=== PATIENT | female | born 1995 | race Caucasian/White ===

== ENCOUNTER 2017-04-06 11:52 | Observation (INO) | payer MEDICAID ==
[~2017-04-06] VITALS: Ht 172.7 cm; Wt 99.8 kg
[~2017-04-06 11:52] MED LIST: ACETAMINOPHEN-1 EAC1 PO; CITRATE OF MAG296 ML PO; COLACE100 MG PO; FLAGYL500 MG PO; HYDROCODONE-AP1 EAC6 PO
[2017-04-06 12:20] VITALS: BP 147/93
--- NOTE | 2017-04-06 12:21 | NUR ---
PT STATES SHE CANNOT URINATE AT THIS TIME
[2017-04-06 12:40] LABS: URINE BLOOD NEGATIVE (Negative); URINE CLARITY CLEAR; URINE COLOR YELLOW; URINE GLUCOSE-RANDOM NEGATIVE (Negative); URINE LEUKOCYTES-REFLEX NEGATIVE (Negative); URINE NITRITE-REFLEX NEGATIVE (Negative); URINE PROTEIN TRACE (Negative); URINE SPECIFIC GRAVITY >= 1.030 (1.005-1.030); URINE UROBILINOGEN 0.2 E.U./dl (0.2-1.0)
[2017-04-06 12:41] LABS: ICTOTEST (BILI CONFIRMATORY) Negative (Negative); URINE BILIRUBIN 1+ (Negative); URINE KETONES 3+ (Negative)
[2017-04-06 12:44] LABS: URINE REDUCING SUBSTANCE NEGATIVE (Negative)
[2017-04-06 12:50] LABS: HEMATOCRIT 42.9 % (37.0-47.0); HEMOGLOBIN 14.6 gm/dL (12.0-15.0); MCH 27.6 pg (26.0-34.0); MCHC 34.1 g/dL (28.0-37.0); MPV 8.8 fl. (7.2-11.1); NUCLEATED RBCS 0 /100WBC; PLATELET COUNT* 268 thou/uL (150-400); RBC 5.29 mil/uL (4.20-5.00); RDW-CV 16.2 % (10.5-14.5); WBC 11.1 thou/uL (4.0-11.0)
[2017-04-06 13:10] LABS: CALCIUM 9.1 mg/dL (8.5-10.1); CREATININE 0.8 mg/dL (0.6-1.3); POTASSIUM 3.8 mmol/L (3.5-5.1)
[2017-04-06 13:13] LABS: ABSOLUTE LYMPHOCYTES 1.2 thou/uL (0.8-5.3); ABSOLUTE MONOCYTES 0.2 thou/uL (0.0-1.2); ABSOLUTE NEUTROPHILS 9.7 thou/uL (1.6-8.1); PLATELET ESTIMATE ADEQUATE
[2017-04-06 13:14] LABS: ANISOCYTOSIS 1+; POIKILOCYTOSIS 1+
[2017-04-06 13:15] LABS: TOTAL BILIRUBIN 0.9 mg/dL (<0.1-1.0); TOTAL PROTEIN 7.6 g/dL (6.4-8.2)
[2017-04-06 15:07] VITALS: BP 120/74
[2017-04-06 20:00] VITALS: BP 163/59
[2017-04-06 21:31] VITALS: BP 120/74
[2017-04-06] MEDS ORDERED: TRAMADOL 50 MG50 MG PO (21:52)
[2017-04-06 22:04] VITALS: BP 120/74
--- NOTE | 2017-04-06 22:32 | NUR ---
ADMISSION HISTORY AND ASSESSMENT COMPLETED CHARTED, VSS. BLOOD PRESSURE SLIGHTLY ELEVATED, 163/59, HOWEVER PATIENT VOICES FRUSTRATION AND ANXIETY BECAUSE THE RESIDENT HAD TOLD HER "SHE COULD GO HOME AFTER THE SURGERY." PATIENT REQUESTING THAT THIS RN CALL THE RESIDENT AND ASK IF SHE CAN BE DISCHARGED TONIGHT. SPOKE TO DR. BEBE REYES LETTING HIM KNOW THE PATIENT IS WANTING TO LEAVE BECAUSE SHE DOES NOT HAVE A SHEETMETAL PATTERNMAKER FOR HER [address] BEBE REYES ADAMIT ABOUT PATIENT STAYING DUE TO EXTENT OF INFECTION IN GALLBLADDER FOUND DURING SURGERY. THIS RN RETURNED TO PATIENT'S ROOM TO EXPLAIN THIS TO PATIENT. PATIENT STATES "I CAN FOLLOW UP WITH THE DOCTOR TOMORROW IF THAT'S WHAT IT TAKES." PATIENT STRONGLY ENCOURAGED TO STAY FOR OBSERVATION. PILL PACKER IN TO TALK TO PATIENT. PATIENT TEARFUL BECAUSE "SHE HAS BEEN ON HERE OWN SINCE SHE WAS 15 YEARS OLD AND HAS A BABY AT HOME THAT SHE NEEDS TO GET HOME TO." PILL PACKER VOICED SYMPATHY AND OFFERED TO CONSULT CASE MANAGEMENT TO HELP PATIENT FIND ASSISTANCE. PATIENT REFUSED CONSULT BECAUSE THEY WOULDNT "SEE HER UNTIL THE MORNING." HER FRIEND IS AT THE BEDSIDE OFFERING TO CALL IN TO WORK TONIGHT TO STAY WITH THE BABY. PATIENT CONTINUES TO REFUSE TO STAY DESPITE ALL OPTIONS GIVEN. DR. BEBE REYES PAGED AGAIN AND DISCHARGE INSTRUCTIONS AND ORDERS RECIEVED, HOWEVER, PATIENT WAS STILL CONSIDERED LEAVING AMA ACCORDING TO DR. DISCHARGE INSTRUCTIONS AND ORDERS EXPLAINED TO PATIENT. PATIENT VERBALIZES UNDERSTANDING. DISCHARGE PACKET SIGNED, WELL EDUCATION SHEET ABOUT PRESCRIPTION TRAMADOL. PATIENT SENT WITH ALL BELONGINGS AND SCRIPT. IV DC'D. FRIEND LEFT THE UNIT WITH HIS FRIEND.
[2017-04-07] MEDS ORDERED: BIRTH CONTROL PO (14:21)
--- NOTE | 2017-04-08 16:10 | S ---
[address] [address] SURGICAL PATH RPT PROCEDURE Name: BERNARDO HARRELL Room: [address] Yordy Loera#: [id number] Admission: 04/06/17 Date of : 89 Discharge: 04/06/17 Report #: [id number] Path Case #: [id number] PATHOLOGY REPORT COLLECTION DATE: 04/06/2017 RECEIVED DATE: 04/07/2017 SUBMITTING PHYS: Dr. Lona Hilliard OTHER PHYS: Sondra May [facility] SPECIMEN(S) RECEIVED: A.Gallbladder and contents * * * * * * * * * * * * FINAL DIAGNOSIS: Gallbladder and contents: - Chronic and acute, erosive and hemorrhagic cholecystitis with mural fibrosis, cholelithiasis and benign sentinel lymph node with congestion. (SAVANA:[facility]; 04/08/2017) PATHOLOGIST: Timbo York M.D. REPORT ELECTRONICALLY SIGNED BY: Timbo York M.D. DATE/TIME: 04/08/2017 16:10 * * * * * * * * * * * * GROSS PATHOLOGY: Received in formalin labeled "Bernardo Harrell gallbladder and contents" and consists of a previously opened gallbladder measuring (upon reconstruction) 5.0 x 2.5 x 1.7 cm. The serosa is ragged, marija, and markedly hemorrhagic. The neck region is inked black. The wall is markedly fibrotic and measures 0.5 cm thick. The mucosa is shaggy and red-brown. Also within the container is a green calculus measuring 0.7 cm in diameter. 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 (AVERY; 04/07/2017) CLINICAL HISTORY: Cholecystitis INITIAL CPT CODE(S): A; 58213 [facility], [address] [place] [id number]. Technical services performed by [facility] at [address] [place] [address], [facility] [address] [place] [address]. [place] [address] SURGICAL PATH RPT PROCEDURE Name: BERNARDO HARRELL Room: [address] Yordy Loera#: [id number] Admission: 04/06/17 Date of : [birth year] Discharge: 04/06/17 Report #: [id number] Path Case #: [id number] [address] PHONE: [phone] DIRECTOR: Bubba Newton M.D. * * * END OF REPORT * * *
--- NOTE | 2017-04-19 19:30 | OP ---
[address] [address] OPERATIVE REPORT Name: BERNARDO DONALD Room: [address] Yordy Loera#: [id number] Admission: 04/06/17 Attend Phys: Lona Hilliard MD Discharge: 04/06/17 Date of : 89 Report #: [id number] THIS REPORT FOR: //name// CC: Lona May DATE OF SERVICE: 04/06/2017 PREOPERATIVE DIAGNOSIS: Acute cholecystitis. POSTOPERATIVE DIAGNOSIS: Gangrenous cholecystitis. PROCEDURE: Laparoscopic cholecystectomy. SURGEON: Lona Hilliard MD ASSISTANTS: 1. Alexis Mendoza DO 2. Waldo Ngo DO ESTIMATED BLOOD LOSS: 50. COMPLICATIONS: None. FINDINGS: 1. Critical view of safety obtained. 2. Jose A purulent expressed from the gallbladder. DESCRIPTION OF PROCEDURE: Fully informed consent was obtained preoperatively with full discussion of risks, benefits and alternatives. The patient understood risk of bleeding, infection, reoperation, conversion to open, injury to surrounding structures including bowel, duodenum, common bile duct among others, hernia, conversion to open, bile leak, recurrence of symptoms, need for drain either cholecystostomy or temporary drain in the gallbladder bed and catastrophic complications up to including cardiopulmonary failure and . The patient understood and wished to proceed. She was taken to the operating room, prepped and draped in standard sterile fashion and began with timeout, all in agreement, began with 5 mm incision left upper quadrant and used Optiview technique to enter safely into the abdomen. I surveyed the abdomen and of note, there was an inflamed omentum pulled over the gallbladder and liver. Additional ports were placed including 2 elevens in the supraumbilical area and subxiphoid area and 2 fives in the right upper quadrant. Omentum was dissected free primarily with cautery, bowel was well away from this, gallbladder was elevated, retracted cranially and laterally. It was grasped at the neck and retracted, began dissection of the triangle of Calot. I scored the peritoneum medially and [facility] [address] [place] [address] OPERATIVE REPORT Name: BERNARDO DONALD Room: [address]#: [id number] Admission: 04/06/17 Attend Phys: Lona Hilliard MD Discharge: 04/06/17 Date of : 89 Report #: [id number] laterally along the triangle of Calot, circumferentially dissected removing all fibrofatty tissue from between the cystic duct and cystic artery. Next, we did extensive mobilization posteriorly including the back wall in the gallbladder clearing the cystic plate completely in order to confirm my critical view. Next, I took a blue load 45 stapler and fired across the cystic duct gallbladder junction. The cystic artery was clipped and Bovie was transected distally, I used Bovie to transect the rest of the gallbladder from the liver bed. I made sure it was hemostatic at this time. Next, I placed a piece of Surgicel in the gallbladder bed after first irrigating and suctioning copiously. A 19 round TANIKA placed in the gallbladder bed as well as a piece of Surgicel, which was anchored in place with 2-0 nylon. Next, 0 Vicryl was used to close the subxyphoid and umbilical fascia using Dario-Travis technique, I desufflated and again reviewed the gallbladder bed as well as the port sites, while they were removed, I saw no bleeding. A 4-0 Monocryl was used to close the skin and sterile Dermabond was applied. Sponge, needle, instrument counts were correct at the end of the case. <ELECTRONICALLY SIGNED> By: Lona Hilliard MD 04/19/171929 180 1927Daalfredo Hilliard MD /nt
== END 2017-04-06 22:45 | disposition left against medical advice (07) ==
LOC: M.SUR 11:52 → M.ERS 11:52 → M.TBA 17:31 → M.ORTHSURG 19:12
PROVIDERS: Nurse Practitioner Family; ADMIT Surgery
PROC: 0FT44ZZ Resection of Gallbladder, Percutaneous Endoscopic Approach (ICD-10-PCS; principal; 2017-04-06)
DX: K80.00 Calculus of gallbladder with acute cholecystitis without obstruction (principal)

== ENCOUNTER 2017-04-07 14:11 | Inpatient (IN) | payer MEDICAID ==
[~2017-04-07] VITALS: Ht 172.7 cm; Wt 99.8 kg
[~2017-04-07 14:11] MED LIST changes: +TRAMADOL 50 MG50 MG PO
[2017-04-07 14:19] VITALS: BP 150/97
[2017-04-07] MEDS ORDERED: BIRTH CONTROL PO (14:21)
[2017-04-07 14:45] LABS: ABSOLUTE LYMPHOCYTES 2.7 thou/uL (0.8-5.3); ABSOLUTE MONOCYTES 1.5 thou/uL (0.0-1.2); ABSOLUTE NEUTROPHILS 11.9 thou/uL (1.6-8.1); BASOPHILS 0.1 %; HEMATOCRIT 43.4 % (37.0-47.0); HEMOGLOBIN 14.6 gm/dL (12.0-15.0); MCH 27.5 pg (26.0-34.0); MCHC 33.7 g/dL (28.0-37.0); MCV 81.8 fL (80.0-100.0); MONOCYTES 9.1 %; NUCLEATED RBCS 0 /100WBC; PLATELET COUNT* 276 thou/uL (150-400); POLYS 73.8 %; RBC 5.31 mil/uL (4.20-5.00); RDW-CV 16.7 % (10.5-14.5); WBC 16.1 thou/uL (4.0-11.0)
[2017-04-07 14:52] LABS: CALCIUM 9.4 mg/dL (8.5-10.1); CREATININE 0.9 mg/dL (0.6-1.3); POTASSIUM 3.5 mmol/L (3.5-5.1)
[2017-04-07 14:56] LABS: ALBUMIN 4.1 g/dL (3.4-5.0); TOTAL BILIRUBIN 0.9 mg/dL (<0.1-1.0); TOTAL PROTEIN 7.9 g/dL (6.4-8.2)
[2017-04-07 15:36] LABS: URINE BLOOD NEGATIVE (Negative); URINE CLARITY CLEAR; URINE COLOR YELLOW; URINE GLUCOSE-RANDOM NEGATIVE (Negative); URINE KETONES 2+ (Negative); URINE LEUKOCYTES-REFLEX NEGATIVE (Negative); URINE NITRITE-REFLEX NEGATIVE (Negative); URINE PROTEIN NEGATIVE (Negative); URINE SPECIFIC GRAVITY 1.015 (1.005-1.030); URINE UROBILINOGEN 0.2 E.U./dl (0.2-1.0)
[2017-04-07 15:37] LABS: URINE BILIRUBIN 1+ (Negative)
[2017-04-07 15:39] LABS: ICTOTEST (BILI CONFIRMATORY) Negative (Negative)
[2017-04-07 17:01] VITALS: BP 142/76
[2017-04-07 17:23] VITALS: BP 151/66
--- NOTE | 2017-04-07 17:48 | NUR ---
ASSUMED CARE OF PATIENT AFTER TRANSFER FROM THE ED AT 1725. ORIENTED PATIENT TO ROOM. PATIENT HAS NO COMPLAINTS OF NAUSEA AT THIS TIME. PAIN IS BEING MANAGED WITH MEDICATION. PATIENT IS CURRENTLY DRINKING CONTRAST DRINK FOR UPCOMING SCANS. CALL LIGHT IS WITHIN REACH. NURSING WILL CONTINUE TO MONITOR.
[2017-04-07 20:00] VITALS: BP 158/97
[2017-04-08 00:11] VITALS: BP 121/70
--- NOTE | 2017-04-08 03:52 | NUR ---
ASSUMED CARE OF PT AT 1930, NURSING ASSESSMENT COMPLETED AT START OF SHIFT, PT VOICED PAIN AT START OF SHIFT, DR. LOPEZ PAGED AND NEW ORDERS RECEIVED FOR MORPHINE 2 MG IVPUSH Q2H PRN. SPOKE TO DR. NAVARRO IN REGARDS TO PATIENT'S ABDOMINAL CT SCAN RESULTS AT 2031. DR. LOPEZ NOTIFIED AND GIVEN DR. NAVARRO'S PHONE NUMBER PER DR. NAVARRO REQUEST AT 2044. PT RESING IN ROOM WITH [id number] AT BEDSIDE. VITAL SIGNS STABLE THIS SHIFT, CALL LIGHT WITHIN REACH.
--- NOTE | 2017-04-08 06:16 | NUR ---
PT HAD TOTAL OF 60 ML OF LIGHT RED SEROSANGUINEOUS FLUID IN TANIKA DRAIN THIS SHIFT, IV ANTIBIOTICS INFUSING, PRN PAIN MEDICATIONS GIVEN-SEE EMAR FOR DOCUMENTATION.
[2017-04-08 08:13] LABS: RBC 4.91 mil/uL (4.20-5.00)
[2017-04-08 08:15] LABS: ABSOLUTE BASOPHILS 0.2 thou/uL (0.0-0.2); ABSOLUTE LYMPHOCYTES 2.1 thou/uL (0.8-5.3); ABSOLUTE MONOCYTES 0.8 thou/uL (0.0-1.2); ABSOLUTE NEUTROPHILS 7.2 thou/uL (1.6-8.1); BASOPHILS 1.7 %; EOSINOPHILS 0.5 %; HEMOGLOBIN 13.7 gm/dL (12.0-15.0); LYMPHOCYTES 20.3 %; MCH 27.9 pg (26.0-34.0); MCHC 34.2 g/dL (28.0-37.0); MCV 81.5 fL (80.0-100.0); MONOCYTES 7.9 %; MPV 8.8 fl. (7.2-11.1); NUCLEATED RBCS 0 /100WBC; PLATELET COUNT* 222 thou/uL (150-400); POLYS 69.6 %; RDW-CV 16.6 % (10.5-14.5); WBC 10.3 thou/uL (4.0-11.0)
[2017-04-08 08:28] LABS: ALBUMIN 3.4 g/dL (3.4-5.0); CALCIUM 8.8 mg/dL (8.5-10.1); CREATININE 0.9 mg/dL (0.6-1.3); POTASSIUM 3.6 mmol/L (3.5-5.1); TOTAL BILIRUBIN 1.8 mg/dL (<0.1-1.0); TOTAL PROTEIN 6.8 g/dL (6.4-8.2)
--- NOTE | 2017-04-08 14:09 | NUR ---
CM SPOKE TO THE PATIENT TO DISCUSS HOME SITUATION, DISCHARGE PLANNING, AND TO INFORM OF THE ROLE OF CM. PATIENT ALERT, ORIENTED, AND INDEPENDENT WITH ADL'S. PATIENT WORKS AND DRIVES. PATIENT PLANS TO RETURN HOME AT DISCHARGE AND DOES NOT ANTICIPATE ANT NEEDS. CM WILL REMAIN AVAILABLE TO ASSIST AND FOLLOW NEEDED.
[2017-04-08 15:54] VITALS: BP 126/77
[2017-04-08 20:00] VITALS: BP 160/93
--- NOTE | 2017-04-08 22:13 | NUR ---
PATIENT STATES THAT SHE IS HAVING A HARD TIME BREATHING AND HAS NUMBNESS EVERYWHERE. ALSO STATES THAT SHE IS HAVING TROUBLE TALKING. HOWEVER NURSE OBSERVED PATIENT TALKING JUST FINE WITHOUT ANY ISSUES WHEN NURSE FIRST ENTERED PATIENTS ROOM. PATIENT FRIENDS WERE AT BEDSIDE AND DECIDED TO LEAVE WHEN ALL OF THIS STARTED. VSS ON RA. PATIENT IS VERY ANXIOUS AND CRYING. PATIENT STATES THAT SHE DOES HAVE ANXIETY BUT HASN'T EVER TAKEN ANYTHING FOR IT. PATIENT REQUESTED THAT I NOTIFY DR. GARCIACERTIFIED MIDWIFE OBSERVED PATIENT AND ASSESSED PATIENT. NOTIFIED AND INFORMED OF WHAT PATIENT STATED THAT SHE WAS EXPERIENCING. STATED THAT HE BELIEVED THAT IT WAS MORE PERSONALITY AND ANXIETY RELATED. NO NEW ORDERS AT THIS TIME. PATIENT INSTRUCTED TO USE CALL LIGHT WHEN NEEDING ASSISTANCE. HOURLY ROUNDS MADE. WILL CONTINUE WITH PLAN OF CARE AND NURSING TO MONITOR.
[2017-04-09 04:29] LABS: HEMOGLOBIN 13.3 gm/dL (12.0-15.0); MCV 82.1 fL (80.0-100.0); MPV 9.2 fl. (7.2-11.1); RBC 4.75 mil/uL (4.20-5.00); RDW-CV 16.3 % (10.5-14.5)
[2017-04-09 05:12] LABS: ALBUMIN 3.3 g/dL (3.4-5.0); CALCIUM 8.9 mg/dL (8.5-10.1); CREATININE 0.8 mg/dL (0.6-1.3); DIRECT BILIRUBIN 0.2 mg/dL (<0.1-0.3); POTASSIUM 3.5 mmol/L (3.5-5.1); TOTAL BILIRUBIN 0.8 mg/dL (<0.1-1.0); TOTAL PROTEIN 6.3 g/dL (6.4-8.2)
--- NOTE | 2017-04-09 07:48 | NUR ---
PATIENT HAS SLEPT THROUGHOUT THE NIGHT WITHOUT ANYMORE C/O PAIN AND ANXIETY HAS SUBSIDED. VSS ON RA. LAP SITES X 4 C/D/I. PATIENT IS UP AD-JASON AND STEADY. IV IN RIGHT AC-SL. PATIENT INSTRUCTED TO USE CALL LIGHT WHEN NEEDING ASSISTANCE. HOURLY ROUNDS MADE. WILL CONTINUE WITH PLAN OF CARE AND NURSING TO MONITOR.
[2017-04-09 08:12] VITALS: BP 127/77
[2017-04-09 09:00] VITALS: BP 127/77
[2017-04-09 09:46] VITALS: BP 127/77
--- NOTE | 2017-04-09 09:46 | NUR ---
ASSUMED CARE OF PATIENT AFTER MORNING REPORT. ALERT AND ORIENTED X4. ASSESSMENT COMPLETED AND CHARTED. VSS ON ROOM AIR. PATIENT HAD NO COMPLAINTS OF NAUSEA. PAIN WAS MANAGED WITH PAIN MEDICATION. TANIKA DRAIN AND IV DISCONTINUED AND PATIENT DISCHARGED AT 0940. ALL PERSONAL ITEMS LEFT WITH PATIENT. DISCHARGE INSTRUCTIONS SENT WITH PATIENT UPON DISCHARGE.
== END 2017-04-09 09:40 | disposition home or self-care (01) | DRG 864 ==
LOC: M.ERS 14:11 → M.TBA-ER 16:24 → M.ORTHSURG 16:24
PROVIDERS: Nurse Practitioner Family; ADMIT Surgery
DX: R50.82 Postprocedural fever (principal); G89.18 Other acute postprocedural pain; D72.829 Elevated white blood cell count, unspecified; Z90.49 Acquired absence of other specified parts of digestive tract

== ENCOUNTER 2018-02-27 21:17 | Emergency (ER) | payer OTHER, MEDICAID ==
[~2018-02-27] VITALS: Ht 172.7 cm; Wt 108.9 kg
[~2018-02-27 21:17] MED LIST changes: +BIRTH CONTROL PO
[2018-02-27 21:53] LABS: ABSOLUTE EOSINOPHILS 0.2 thou/uL (0.0-0.7); ABSOLUTE LYMPHOCYTES 2.7 thou/uL (0.8-5.3); ABSOLUTE MONOCYTES 0.5 thou/uL (0.0-1.2); ABSOLUTE NEUTROPHILS 3.2 thou/uL (1.6-8.1); BASOPHILS 0.7 %; EOSINOPHILS 3.7 %; HEMATOCRIT 38.3 % (37.0-47.0); HEMOGLOBIN 12.7 gm/dL (12.0-15.0); LYMPHOCYTES 40.5 %; MCH 26.8 pg (26.0-34.0); MCHC 33.2 g/dL (28.0-37.0); MCV 80.6 fL (80.0-100.0); MONOCYTES 7.3 %; MPV 8.8 fl. (7.2-11.1); NUCLEATED RBCS 0 /100WBC; PLATELET COUNT* 278 thou/uL (150-400); POLYS 47.8 %; RBC 4.75 mil/uL (4.20-5.00); RDW-CV 15.4 % (10.5-14.5); WBC 6.7 thou/uL (4.0-11.0)
[2018-02-27 21:58] LABS: CALCIUM 8.8 mg/dL (8.5-10.1); CREATININE 0.8 mg/dL (0.6-1.3)
[2018-02-27 22:00] LABS: URINE BILIRUBIN NEGATIVE (Negative); URINE BLOOD 2+ (Negative); URINE CLARITY CLEAR; URINE COLOR YELLOW; URINE GLUCOSE-RANDOM NEGATIVE (Negative); URINE KETONES NEGATIVE (Negative); URINE LEUKOCYTES-REFLEX TRACE (Negative); URINE NITRITE-REFLEX NEGATIVE (Negative); URINE PROTEIN NEGATIVE (Negative); URINE SPECIFIC GRAVITY >= 1.030 (1.005-1.030); URINE UROBILINOGEN 0.2 E.U./dl (0.2-1.0)
[2018-02-27 22:02] LABS: ALBUMIN 3.3 g/dL (3.4-5.0); TOTAL BILIRUBIN 0.2 mg/dL (<0.1-1.0); TOTAL PROTEIN 7.3 g/dL (6.4-8.2)
[2018-02-27 22:41] LABS: SQUAMOUS >10 Many /LPF (0-3)
[2018-02-27 22:42] LABS: BACTERIA-REFLEX 1-9 Few /HPF (None Seen); CASTS None Seen /LPF (None Seen); CRYSTALS None Seen /LPF (None Seen); URINE RBC 3-10 Few /HPF (0-2); URINE WBC-REFLEX 0-5 Rare /HPF (0-5)
[2018-02-28 01:04] VITALS: BP 126/73
== END 2018-02-28 01:04 | disposition home or self-care (01) ==
LOC: M.ERS 21:17
PROVIDERS: Physician Assistant
DX: R10.33 Periumbilical pain (principal); K92.1 Melena; Z90.49 Acquired absence of other specified parts of digestive tract; Z98.890 Other specified postprocedural states

== ENCOUNTER 2018-03-22 10:41 | Emergency (ER) | payer OTHER, MEDICAID ==
[~2018-03-22] VITALS: Ht 172.7 cm; Wt 108.9 kg
[2018-03-22 11:16] LABS: ABSOLUTE LYMPHOCYTES 1.7 thou/uL (0.8-5.3); ABSOLUTE MONOCYTES 0.8 thou/uL (0.0-1.2); BASOPHILS 0.3 %; HEMATOCRIT 38.7 % (37.0-47.0); LYMPHOCYTES 17.8 %; MCH 26.5 pg (26.0-34.0); MCHC 33.5 g/dL (28.0-37.0); MCV 79.1 fL (80.0-100.0); MONOCYTES 8.8 %; MPV 7.6 fl. (7.2-11.1); NUCLEATED RBCS 0 /100WBC; PLATELET COUNT* 226 thou/uL (150-400); POLYS 73.1 %; RDW-CV 16.4 % (10.5-14.5); WBC 9.6 thou/uL (4.0-11.0)
[2018-03-22 11:24] LABS: CALCIUM 8.9 mg/dL (8.5-10.1); CREATININE 0.8 mg/dL (0.6-1.3); POTASSIUM 3.7 mmol/L (3.5-5.1)
[2018-03-22 11:29] LABS: ALBUMIN 3.5 g/dL (3.4-5.0); TOTAL BILIRUBIN 0.4 mg/dL (<0.1-1.0); TOTAL PROTEIN 8.1 g/dL (6.4-8.2)
[2018-03-22] MEDS ORDERED: CLEOCIN HCL150 MG PO (14:22)
[2018-03-22 14:49] VITALS: BP 114/64
== END 2018-03-22 14:51 | disposition home or self-care (01) ==
LOC: M.ERS 10:41
PROVIDERS: Nurse Practitioner Family
DX: J35.03 Chronic tonsillitis and adenoiditis (principal); K04.7 Periapical abscess without sinus; Z98.890 Other specified postprocedural states; Z90.49 Acquired absence of other specified parts of digestive tract

== ENCOUNTER 2018-03-24 08:52 | Emergency (ER) | payer OTHER, MEDICAID ==
[~2018-03-24] VITALS: Ht 172.7 cm; Wt 108.9 kg
[~2018-03-24 08:52] MED LIST changes: +CLEOCIN HCL150 MG PO
[2018-03-24 10:16] LABS: ABSOLUTE LYMPHOCYTES 1.9 thou/uL (0.8-5.3); ABSOLUTE MONOCYTES 0.6 thou/uL (0.0-1.2); BASOPHILS 0.2 %; EOSINOPHILS 0.1 %; HEMATOCRIT 35.2 % (37.0-47.0); HEMOGLOBIN 11.7 gm/dL (12.0-15.0); LYMPHOCYTES 24.5 %; MCH 26.5 pg (26.0-34.0); MCHC 33.3 g/dL (28.0-37.0); MCV 79.4 fL (80.0-100.0); MONOCYTES 8.5 %; MPV 7.7 fl. (7.2-11.1); NUCLEATED RBCS 0 /100WBC; PLATELET COUNT* 240 thou/uL (150-400); POLYS 66.7 %; RBC 4.43 mil/uL (4.20-5.00); RDW-CV 16.3 % (10.5-14.5); WBC 7.6 thou/uL (4.0-11.0)
[2018-03-24 10:30] LABS: CALCIUM 8.1 mg/dL (8.5-10.1); CREATININE 0.8 mg/dL (0.6-1.3); POTASSIUM 3.6 mmol/L (3.5-5.1)
[2018-03-24 10:44] LABS: ALBUMIN 3.1 g/dL (3.4-5.0); TOTAL BILIRUBIN 0.2 mg/dL (<0.1-1.0)
[2018-03-24] MEDS ORDERED: Magic Mouthwash PO (12:07)
[2018-03-24] MEDS ORDERED: TUSSIONEX PENN115 ML PO (12:07)
[2018-03-24] MEDS ORDERED: TORADOL 10 MG T10 MG PO (12:07)
[2018-03-24 12:36] VITALS: BP 110/66
== END 2018-03-24 12:37 | disposition home or self-care (01) ==
LOC: M.ERS 08:52
PROVIDERS: Personal Emergency Response Attendant
DX: J03.90 Acute tonsillitis, unspecified (principal); Z90.49 Acquired absence of other specified parts of digestive tract; Z98.890 Other specified postprocedural states

== ENCOUNTER 2019-04-27 05:52 | Emergency (ER) | payer OTHER ==
[~2019-04-27] VITALS: Ht 172.7 cm; Wt 90.7 kg
[~2019-04-27 05:52] MED LIST changes: +Magic Mouthwash PO; +TORADOL 10 MG T10 MG PO; +TUSSIONEX PENN115 ML PO
[2019-04-27 06:00] VITALS: BP 143/77
[2019-04-27] MEDS ORDERED: Magic Mouthwash SW&SWALLOW (06:22)
[2019-04-27] MEDS ORDERED: TYLENOL WITH CO1 TA1 PO (06:22)
[2019-04-27] MEDS ORDERED: AUGMENTIN 500-1 EACH PO (06:22)
== END 2019-04-27 06:31 | disposition home or self-care (01) ==
LOC: M.ERS 05:52
DX: J03.90 Acute tonsillitis, unspecified (principal); Z98.890 Other specified postprocedural states; Z90.49 Acquired absence of other specified parts of digestive tract

== ENCOUNTER 2019-11-21 12:53 | Emergency (ER) | payer OTHER ==
[~2019-11-21] VITALS: Ht 167.6 cm; Wt 81.7 kg
[~2019-11-21 12:53] MED LIST changes: +AUGMENTIN 500-1 EACH PO; +Magic Mouthwash SW&SWALLOW; +TYLENOL WITH CO1 TA1 PO
[2019-11-21 13:28] LABS: ABSOLUTE EOSINOPHILS 0.1 thou/uL (0.0-0.7); ABSOLUTE LYMPHOCYTES 3.1 thou/uL (0.8-5.3); ABSOLUTE MONOCYTES 0.6 thou/uL (0.0-1.2); BASOPHILS 0.5 %; EOSINOPHILS 0.7 %; HEMATOCRIT 40.5 % (37.0-47.0); HEMOGLOBIN 14.5 gm/dL (12.0-15.0); LYMPHOCYTES 31.5 %; MCH 31.3 pg (26.0-34.0); MCHC 35.8 g/dL (28.0-37.0); MCV 87.3 fL (80.0-100.0); MONOCYTES 5.8 %; MPV 8.4 fl. (7.2-11.1); NUCLEATED RBCS 0 /100WBC; PLATELET COUNT* 232 thou/uL (150-400); POLYS 61.5 %; RBC 4.64 mil/uL (4.20-5.00); RDW-CV 12.5 % (10.5-14.5); WBC 9.8 thou/uL (4.0-11.0)
[2019-11-21 13:29] LABS: URINE BILIRUBIN NEGATIVE (Negative); URINE BLOOD 3+ (Negative); URINE CLARITY CLEAR; URINE COLOR YELLOW; URINE GLUCOSE-RANDOM NEGATIVE (Negative); URINE KETONES NEGATIVE (Negative); URINE LEUKOCYTES-REFLEX NEGATIVE (Negative); URINE NITRITE-REFLEX NEGATIVE (Negative); URINE PROTEIN NEGATIVE (Negative); URINE UROBILINOGEN 0.2 E.U./dl (0.2-1.0)
[2019-11-21 13:37] LABS: CALCIUM 8.7 mg/dL (8.5-10.1); CREATININE 0.8 mg/dL (0.6-1.3); POTASSIUM 3.7 mmol/L (3.5-5.1)
[2019-11-21 13:41] LABS: TOTAL BILIRUBIN 0.8 mg/dL (<0.1-1.0); TOTAL PROTEIN 7.7 g/dL (6.4-8.2)
[2019-11-21 13:54] LABS: SQUAMOUS 0-3 Few /LPF (0-3); URINE WBC-REFLEX None Seen /HPF (0-5)
[2019-11-21 13:55] LABS: CASTS None Seen /LPF (None Seen); CRYSTALS None Seen /LPF (None Seen); MUCUS None Seen strn/LPF (None Seen); URINE RBC 3-10 Few /HPF (0-2)
[2019-11-21] MEDS ORDERED: BENTYL 20 MG TA20 M1 PO (15:53)
[2019-11-21] MEDS ORDERED: ONDANSETRON HCL4 M2 PO (15:53)
[2019-11-21] MEDS ORDERED: IBUPROFEN 800800 M1 PO (15:53)
[2019-11-21] MEDS ORDERED: NORCO 5-325 TA1 EAC2 PO (16:30)
[2019-11-21 16:38] VITALS: BP 128/74
== END 2019-11-21 16:54 | disposition home or self-care (01) ==
LOC: M.ERS 12:53
PROVIDERS: Nurse Practitioner Family
DX: N83.202 Unspecified ovarian cyst, left side (principal); N93.9 Abnormal uterine and vaginal bleeding, unspecified; R19.7 Diarrhea, unspecified; Z98.890 Other specified postprocedural states; Z90.49 Acquired absence of other specified parts of digestive tract

== ENCOUNTER 2019-12-08 14:57 | Emergency (ER) | payer OTHER ==
[~2019-12-08] VITALS: Ht 172.7 cm; Wt 98.0 kg
[~2019-12-08 14:57] MED LIST changes: +BENTYL 20 MG TA20 M1 PO; +IBUPROFEN 800800 M1 PO; +NORCO 5-325 TA1 EAC2 PO; +ONDANSETRON HCL4 M2 PO
[2019-12-08 15:12] LABS: URINE BILIRUBIN NEGATIVE (Negative); URINE BLOOD NEGATIVE (Negative); URINE CLARITY CLEAR; URINE COLOR YELLOW; URINE GLUCOSE-RANDOM NEGATIVE (Negative); URINE KETONES NEGATIVE (Negative); URINE LEUKOCYTES-REFLEX NEGATIVE (Negative); URINE NITRITE-REFLEX NEGATIVE (Negative); URINE PROTEIN NEGATIVE (Negative); URINE SPECIFIC GRAVITY >= 1.030 (1.005-1.030); URINE UROBILINOGEN 0.2 E.U./dl (0.2-1.0)
[2019-12-08] MEDS ORDERED: NORCO 5-325 TA1 EAC2 PO (15:19)
[2019-12-08 15:29] VITALS: BP 121/70
== END 2019-12-08 15:30 | disposition home or self-care (01) ==
LOC: M.ERS 14:57
PROVIDERS: Physician Assistant
DX: R10.32 Left lower quadrant pain (principal); Z76.0 Encounter for issue of repeat prescription; Z90.49 Acquired absence of other specified parts of digestive tract; Z98.890 Other specified postprocedural states

== ENCOUNTER 2020-06-27 23:01 | Emergency (ER) | payer OTHER ==
[~2020-06-27] VITALS: Ht 172.7 cm; Wt 109.3 kg
[2020-06-28 00:39] LABS: ABSOLUTE EOSINOPHILS 0.1 thou/uL (0.0-0.7); ABSOLUTE LYMPHOCYTES 3.3 thou/uL (0.8-5.3); ABSOLUTE MONOCYTES 0.7 thou/uL (0.0-1.2); ABSOLUTE NEUTROPHILS 6.7 thou/uL (1.6-8.1); BASOPHILS 0.4 %; EOSINOPHILS 0.8 %; HEMATOCRIT 38.6 % (37.0-47.0); HEMOGLOBIN 13.3 gm/dL (12.0-15.0); LYMPHOCYTES 30.8 %; MCH 29.7 pg (26.0-34.0); MCHC 34.4 g/dL (28.0-37.0); MCV 86.3 fL (80.0-100.0); MPV 8.2 fl. (7.2-11.1); NUCLEATED RBCS 0 /100WBC; PLATELET COUNT* 286 thou/uL (150-400); RBC 4.47 mil/uL (4.20-5.00); RDW-CV 13.1 % (10.5-14.5); WBC 10.8 thou/uL (4.0-11.0)
[2020-06-28 00:44] LABS: CALCIUM 9.8 mg/dL (8.5-10.1); CREATININE 0.7 mg/dL (0.6-1.3); POTASSIUM 3.6 mmol/L (3.5-5.1)
[2020-06-28 00:48] LABS: ALBUMIN 3.7 g/dL (3.4-5.0); TOTAL BILIRUBIN 0.5 mg/dL (<0.1-1.0); TOTAL PROTEIN 7.8 g/dL (6.4-8.2)
[2020-06-28 01:06] LABS: URINE BILIRUBIN NEGATIVE (Negative); URINE BLOOD 3+ (Negative); URINE CLARITY CLEAR; URINE COLOR YELLOW; URINE GLUCOSE-RANDOM NEGATIVE (Negative); URINE KETONES NEGATIVE (Negative); URINE LEUKOCYTES-REFLEX NEGATIVE (Negative); URINE NITRITE-REFLEX NEGATIVE (Negative); URINE PROTEIN NEGATIVE (Negative); URINE SPECIFIC GRAVITY >= 1.030 (1.005-1.030); URINE UROBILINOGEN 0.2 E.U./dl (0.2-1.0)
[2020-06-28 01:26] LABS: BACTERIA-REFLEX >30 Many /HPF (None Seen); CASTS None Seen /LPF (None Seen); CRYSTALS None Seen /LPF (None Seen); MUCUS >6 Heavy strn/LPF (None Seen); SQUAMOUS 4-10 Moderate /LPF (0-3); TRANSITIONAL EPITHEL CELL 0-3 Few /LPF (None Seen); URINE RBC 3-10 Few /HPF (0-2); URINE WBC-REFLEX 0-5 Rare /HPF (0-5)
[2020-06-28] MEDS ORDERED: CARAFATE 1 GM TA1 GM PO (03:15)
[2020-06-28] MEDS ORDERED: OMEPRAZOLE40 MG PO (03:15)
[2020-06-28] MEDS ORDERED: DOXYCYCLINE 10100 MG PO (03:38)
[2020-06-28 03:42] VITALS: BP 127/79
== END 2020-06-28 03:42 | disposition home or self-care (01) ==
LOC: M.ERS 23:01
PROVIDERS: Personal Emergency Response Attendant
DX: K92.2 Gastrointestinal hemorrhage, unspecified (principal); N70.11 Chronic salpingitis; I88.0 Nonspecific mesenteric lymphadenitis; Z98.890 Other specified postprocedural states; Z90.49 Acquired absence of other specified parts of digestive tract; Z87.42 Personal history of other diseases of the female genital tract; Z91.040 Latex allergy status